=== PATIENT | male | born 1990 | race Two or more races ===

== ENCOUNTER 2019-09-03 16:13 | Emergency (ER) | payer SELFPAY ==
[~2019-09-03] VITALS: Ht 175.3 cm; Wt 81.6 kg
[2019-09-03 17:15] VITALS: BP 121/75
== END 2019-09-03 20:33 | disposition home or self-care (01) ==
LOC: ER 16:23
DX: L02.01 Cutaneous abscess of face (principal)

== ENCOUNTER 2019-09-16 19:14 | Emergency (ER) | payer SELFPAY ==
[~2019-09-16] VITALS: Ht 172.7 cm; Wt 70.0 kg
[2019-09-16 21:56] VITALS: BP 133/83
== END 2019-09-16 22:34 | disposition home or self-care (01) ==
LOC: ER 19:17
DX: L02.01 Cutaneous abscess of face (principal); F15.10 Other stimulant abuse, uncomplicated

== ENCOUNTER 2022-10-04 00:21 | Emergency (ER) | payer MEDICAID ==
[~2022-10-04] VITALS: Ht 177.8 cm; Wt 72.0 kg
[2022-10-04 00:21] VITALS: BP 141/92
[2022-10-04 04:17] LABS: Urine Bacteria FEW /hpf (None Seen); Urine Blood Negative /uL (Negative); Urine Mucus FEW (None Seen); Urine Sperm PRESENT /hpf (None Seen); Urine WBC 5 /hpf (0 - 3)
[2022-10-04 04:35] LABS: Alcohol, Urine < 3.0 mg/dL (0-10); Amphetamine Screen, Urine POSITIVE (NEGATIVE); Barbiturate Scree,Urine NEGATIVE (NEGATIVE); Benzodiazephine Screen, Urine NEGATIVE (NEGATIVE); Cannabinoid Screen, Urine POSITIVE (NEGATIVE); Cocaine Screen, Urine NEGATIVE (NEGATIVE); Opiate Scree,Urine NEGATIVE (NEGATIVE); Phencyclidine Screen, Urine POSITIVE (NEGATIVE)
== END 2022-10-04 06:34 | disposition home or self-care (01) ==
LOC: ER 00:21
DX: R20.9 Unspecified disturbances of skin sensation (principal); F15.10 Other stimulant abuse, uncomplicated; F12.10 Cannabis abuse, uncomplicated; F16.10 Hallucinogen abuse, uncomplicated
CPT/HCPCS: 80307; 81001

== ENCOUNTER 2022-11-19 14:17 | Emergency (ER) | payer MEDICAID ==
[~2022-11-19] VITALS: Ht 175.3 cm; Wt 80.0 kg
[2022-11-19 14:44] VITALS: BP 120/65
[2022-11-19] MEDS ORDERED: TRIA0.02 TOP (15:15)
== END 2022-11-19 15:21 | disposition home or self-care (01) ==
LOC: ER 14:17
DX: K60.2 Anal fissure, unspecified (principal); L25.9 Unspecified contact dermatitis, unspecified cause; Z79.899 Other long term (current) drug therapy

== ENCOUNTER 2022-11-24 12:28 | Emergency (ER) | payer MEDICAID ==
[~2022-11-24] VITALS: Ht 175.3 cm; Wt 79.5 kg
[~2022-11-24 12:28] MED LIST: TRIA0.02 TOP
[2022-11-24] MEDS ORDERED: PROM1SOL4 PO (14:04)
[2022-11-24] MEDS ORDERED: AZIT500T66 PO (14:04)
[2022-11-24 14:12] VITALS: BP 115/65
== END 2022-11-24 14:13 | disposition home or self-care (01) ==
LOC: ER 12:28
DX: J20.9 Acute bronchitis, unspecified (principal); R07.89 Other chest pain
CPT/HCPCS: 71046

== ENCOUNTER 2023-03-25 23:32 | Emergency (ER) | payer MEDICAID ==
[~2023-03-25] VITALS: Ht 175.3 cm; Wt 69.9 kg
[~2023-03-25 23:32] MED LIST changes: +ALBE200T9 PO; +AZIT250T8 PO; +AZIT500T66 PO; +LURA40TA PO; +PROM1SOL4 PO
[2023-03-26 01:31] VITALS: BP 117/80
[2023-03-26] MEDS ORDERED: IBU600T PO (01:36)
[2023-03-26] MEDS ORDERED: MUPI2OIN2 EX (01:36)
[2023-03-26] MEDS ORDERED: CEPH-510 PO (01:36)
[2023-03-26] MEDS ORDERED: WHITGEL TOP (01:36)
[2023-03-26] MEDS: cefTRIAXone SOD 500 MG VL IM ONE ×2 (01:45→01:51)
[2023-03-26] MEDS ORDERED: LIDOCAINE 1% HCL (LOCAL ANESTH.) INJ 20ML MDV ID ONE (01:45)
[2023-03-26] MEDS ORDERED: NEOMYCIN-BACITRACIN-POLYM UNITDOSE PKG TOP OINT TOP ONE (01:45)
[2023-03-26] MEDS ORDERED: IBUPROFEN 600 MG TAB PO ONE (01:45)
== END 2023-03-26 01:53 | disposition home or self-care (01) ==
LOC: ER 23:32
DX: T20.12XA Burn of first degree of lip(s), initial encounter (principal); F20.9 Schizophrenia, unspecified; F15.90 Other stimulant use, unspecified, uncomplicated; Z59.00 Homelessness unspecified; Z79.899 Other long term (current) drug therapy; X08.8XXA Exposure to other specified smoke, fire and flames, initial encounter; Y93.89 Activity, other specified; Y92.89 Other specified places as the place of occurrence of the external cause; Y99.8 Other external cause status
CPT/HCPCS: 16000; 99283; J0696; J2001

== ENCOUNTER 2023-04-16 19:26 | Emergency (ER) | payer MEDICAID ==
[~2023-04-16] VITALS: Ht 175.3 cm; Wt 72.0 kg
[~2023-04-16 19:26] MED LIST changes: +AZIT-81 PO; -AZIT250T8 PO; +CEPH-510 PO; +IBU600T PO; -LURA40TA PO; +LURA40TA2 PO; +MUPI2OIN2 EX; +WHITGEL TOP
[2023-04-16 21:04] VITALS: BP 129/90
== END 2023-04-16 21:37 | disposition home or self-care (01) ==
LOC: ER 19:30
DX: M79.672 Pain in left foot (principal); M79.671 Pain in right foot; F15.10 Other stimulant abuse, uncomplicated; F20.9 Schizophrenia, unspecified; Z79.899 Other long term (current) drug therapy

== ENCOUNTER → 2023-04-29 | Emergency (ER) | payer MEDICAID | END | disposition left against medical advice (07) | LOC: ER 12:56 | DX: Z00.00 Encounter for general adult medical examination without abnormal findings (principal); Z53.21 Procedure and treatment not carried out due to patient leaving prior to being seen by health care provider ==